=== PATIENT | female | born 1965 | race African-American/Black ===

== ENCOUNTER 2019-01-21 10:50 | Emergency (ER) | payer MEDICAID | END 2019-01-22 06:34 | disposition left against medical advice (07) | LOC: ER 12:25 | DX: Z53.21 Procedure and treatment not carried out due to patient leaving prior to being seen by health care provider (principal) ==

== ENCOUNTER 2019-03-26 21:51 | Inpatient (IN) | payer MEDICAID, MEDICARE ==
[~2019-03-26] VITALS: Ht 162.6 cm; Wt 83.0 kg
[2019-03-26] MEDS ORDERED: SODIUM CHLORIDE 0.9% 1,000 ML IV ONE (22:55)
[2019-03-26] MEDS ORDERED: ONDANSETRON HCL 4MG/2ML INJ IV STA (22:55)
[2019-03-26] MEDS ORDERED: MORPHINE SULFATE 4 MG/ML CPJ (NOT FOR IM USE) IV STA (22:55)
[2019-03-26] MEDS ORDERED: NITROGLYCERIN OINT 1GM/INCH UDPKT TD ONE (23:00)
[2019-03-26 23:52] LABS: EOSINOPHILS % 1.5 % (0.0-5.0); HEMATOCRIT. 41.1 % (36.0-48.0); HEMOGLOBIN. 13.9 g/dL (12.0-16.0); LYMPHOCYTES % 39.1 % (20.0-50.0); MEAN CORPUSCULAR VOLUME 85.6 fL (81.0-99.0); MEAN PLATELET VOLUME 8.2 fl (7.4-10.4); MONOCYTES % 6.9 % (2.0-8.0); NEUTROPHILS % 51.5 % (40.0-76.0); PLATELET 248 x1000/uL (130-400); RED CELL DISTRIBUTION WIDTH 15.4 % (11.6-14.6)
[2019-03-26 23:54] LABS: CHLORIDE 110 mEq/L (98-107)
[2019-03-27] VITALS (7 sets, daily range): BP systolic 97–141; BP diastolic 53–82
[2019-03-27 09:12] LABS: BASOPHILS % 1.2 % (0.0-2.0); EOSINOPHILS % 2.1 % (0.0-5.0); HEMATOCRIT. 38.9 % (36.0-48.0); HEMOGLOBIN. 13.4 g/dL (12.0-16.0); MEAN CORPUSCULAR HEMOGLOBIN 29.1 pg (28.0-32.0); MEAN CORPUSCULAR VOLUME 84.8 fL (81.0-99.0); MEAN PLATELET VOLUME 8.2 fl (7.4-10.4); MONOCYTES % 7.1 % (2.0-8.0); NEUTROPHILS % 44.6 % (40.0-76.0); PLATELET 252 x1000/uL (130-400); RED BLOOD CELL COUNT 4.59 mill/uL (4.2-5.4); RED CELL DISTRIBUTION WIDTH 15.4 % (11.6-14.6)
[2019-03-27 10:24] LABS: CHLORIDE 111 mEq/L (98-107)
[2019-03-27] MEDS ORDERED: REGADENOSON 0.4 MG/5 ML IV ONE (13:30)
[2019-03-27] MEDS ORDERED: BISA5TAB PO (13:36)
[2019-03-27] MEDS ORDERED: DIPH25CA83 PO (13:36)
[2019-03-27] MEDS ORDERED: CLONIDINE 0.1MG TABLET PO PRN (15:15)
[2019-03-27] MEDS ORDERED: IPRATROPIUM/ALBUTEROL 0.5-3(2.5)MG/3ML NEB HHN PRN (15:15)
[2019-03-27] MEDS ORDERED: ACETAMINOPHEN 325MG TABLET PO PRN (15:15)
[2019-03-27] MEDS ORDERED: ONDANSETRON HCL 4MG/2ML INJ IV PRN (15:15)
[2019-03-27] MEDS ORDERED: ENOXAPARIN 40MG/0.4ML SYR SUBCUT SCH (16:00)
[2019-03-27] MEDS: HYDROCODONE/ACETAMINOPHEN 5/325MG TABLET PO PRN (22:49)
[2019-03-28 00:34] VITALS: BP 98/50
[2019-03-28 04:00] VITALS: BP 99/62
[2019-03-28] MEDS: HYDROCODONE/ACETAMINOPHEN 5/325MG TABLET PO PRN ×2 (04:40→14:25)
[2019-03-28 06:37] LABS: BASOPHILS % 1.2 % (0.0-2.0); EOSINOPHILS % 2.2 % (0.0-5.0); HEMATOCRIT. 35.1 % (36.0-48.0); HEMOGLOBIN. 11.9 g/dL (12.0-16.0); LYMPHOCYTES % 23.9 % (20.0-50.0); MEAN CORPUSCULAR HEMOGLOBIN 28.9 pg (28.0-32.0); MEAN CORPUSCULAR VOLUME 85.6 fL (81.0-99.0); MEAN PLATELET VOLUME 8.7 fl (7.4-10.4); MONOCYTES % 6.4 % (2.0-8.0); NEUTROPHILS % 66.3 % (40.0-76.0); PLATELET 222 x1000/uL (130-400); RED CELL DISTRIBUTION WIDTH 15.3 % (11.6-14.6)
[2019-03-28 06:43] LABS: CHLORIDE 113 mEq/L (98-107)
[2019-03-28 07:02] LABS: LDL CHOLESTEROL 82 mg/dL (5-100)
[2019-03-28 07:03] LABS: HDL CHOLESTEROL 40 mg/dL (40-59); T4 FREE 0.93 ng/dL (0.76-1.46)
[2019-03-28 07:58] VITALS: BP 109/61
[2019-03-28] MEDS ORDERED: REGADENOSON 0.4 MG/5 ML IV ONE (10:00)
[2019-03-28 12:09] VITALS: BP 118/76
[2019-03-28 16:09] VITALS: BP 110/68
[2019-03-28 17:45] VITALS: BP 110/68
== END 2019-03-28 18:15 | disposition home or self-care (01) | DRG 48 ==
LOC: ER 22:05 → 6WST 03-27 05:20 → EDBEDREQTM 03-27 05:40 → EDBEDREQ 03-27 05:40 → ENRESERV 03-27 09:50
PROVIDERS: ADMIT Internal Medicine; ATTEND Internal Medicine
DX: G90.8 Other disorders of autonomic nervous system (principal); D64.9 Anemia, unspecified; E86.0 Dehydration; R07.89 Other chest pain; M47.816 Spondylosis without myelopathy or radiculopathy, lumbar region; R73.9 Hyperglycemia, unspecified; E87.6 Hypokalemia; F17.200 Nicotine dependence, unspecified, uncomplicated; G89.21 Chronic pain due to trauma; I10 Essential (primary) hypertension; V89.2XXA Person injured in unspecified motor-vehicle accident, traffic, initial encounter; Y93.89 Activity, other specified; Y92.89 Other specified places as the place of occurrence of the external cause; Y99.8 Other external cause status; Z88.6 Allergy status to analgesic agent; Z79.899 Other long term (current) drug therapy
CPT/HCPCS: 36415; 71045; 72148; 73600; 78452; 80048; 80061; 82553; 83735; 83880; 84439; 84443; 84484; 85379; 93005; 93017; 93306; 97162; 97166; 99285; A9500; J1650; J2270; J2405; J2785; J7030

== ENCOUNTER 2023-01-13 21:28 | Emergency (ER) | payer MEDICAID, OTHER ==
[~2023-01-13] VITALS: Ht 162.6 cm; Wt 83.0 kg
[~2023-01-13 21:28] MED LIST: DIPH-909 PO; FURO80TA87 PO; POTA-354 PO
[2023-01-13 21:32] VITALS: O2SAT 94
[2023-01-13] MEDS ORDERED: PIPERACILLIN/TAZOBACTAM 3.375GM/50ML PREMIX IV NR (22:45)
[2023-01-13] MEDS ORDERED: SODIUM CHLORIDE 0.9% 100 ML IV ONE (22:45)
[2023-01-13] MEDS ORDERED: ONDANSETRON HCL 4MG/2ML INJ IV ONE (22:45)
[2023-01-13] MEDS ORDERED: MORPHINE SULFATE 4 MG/ML CPJ (NOT FOR IM USE) IV ONE (22:45)
[2023-01-13 23:14] LABS: CHLORIDE 113 mEq/L (98-107)
[2023-01-13 23:15] LABS: BASOPHILS % 0.6 % (0.0-2.0); EOSINOPHILS % 0.3 % (0.0-5.0); HEMATOCRIT. 38.5 % (36.0-48.0); LYMPHOCYTES % 11.2 % (20.0-50.0); MEAN CORPUSCULAR HEMOGLOBIN 29.1 pg (28.0-32.0); MEAN CORPUSCULAR VOLUME 86.3 fL (81.0-99.0); MEAN PLATELET VOLUME 8.1 fl (7.4-10.4); MONOCYTES % 7.7 % (2.0-8.0); NEUTROPHILS % 80.2 % (40.0-76.0); PLATELET 249 x1000/uL (130-400); RED BLOOD CELL COUNT 4.47 mill/uL (4.2-5.4); RED CELL DISTRIBUTION WIDTH 15.2 % (11.6-14.6)
[2023-01-13 23:16] LABS: INR 1.1; PROTHROMBIN TIME 11.4 sec (9.6-11.0)
[2023-01-13 23:22] LABS: CLARITY URINE CLEAR (CLEAR); COLOR URINE YELLOW (YELLOW); KETONES URINE NEGATIVE (NEGATIVE); LEUKOCYTE ESTERASE URINE TRACE (NEGATIVE); NITRITE URINE POSITIVE (NEGATIVE); OCCULT BLOOD URINE NEGATIVE (NEGATIVE); PROTEIN URINE NEGATIVE (NEGATIVE); SPECIFIC GRAVITY URINE 1.013 (1.005-1.030); UROBILINOGEN URINE 0.2 E.U./dL (0.2-1.0)
[2023-01-14] MEDS ORDERED: METO-293 MT (02:58)
[2023-01-14] MEDS ORDERED: CIPR-263 MT (02:58)
[2023-01-14] MEDS ORDERED: METR375C2 MT (02:58)
[2023-01-14] MEDS ORDERED: ACET-2708 MT (02:58)
[2023-01-14 05:20] VITALS: BP 130/70; PULSE 98; RESP 16; TEMP 100.6
== END 2023-01-14 05:21 | disposition home or self-care (01) ==
LOC: ER 21:28
DX: R10.9 Unspecified abdominal pain (principal); I10 Essential (primary) hypertension; Z88.6 Allergy status to analgesic agent; Z91.018 Allergy to other foods
CPT/HCPCS: 80053; 81003; 83605; 83690; 85025; 85610; 84484; 36415; 74176; 96365; 96366; 96375; 99285; J2405; J2543; J2270; J7050; Z7610 ×2